=== PATIENT | male | born 1950 | race Caucasian/White ===

== ENCOUNTER 2017-06-27 13:28 | Emergency (ER) | payer OTHER ==
[~2017-06-27] VITALS: Ht 180.3 cm; Wt 98.2 kg
[2017-06-27 16:09] VITALS: BP 159/97
== END 2017-06-27 16:10 | disposition home or self-care (01) ==
LOC: EME 13:28
DX: N48.33 Priapism, drug-induced (principal); Z95.9 Presence of cardiac and vascular implant and graft, unspecified; Z87.438 Personal history of other diseases of male genital organs
CPT/HCPCS: 99281; 99284